=== PATIENT | female | born 1955 | race African-American/Black ===

== ENCOUNTER 2023-07-17 09:45 | Day surgery (SDC) | payer BC ==
[~2023-07-17] VITALS: Ht 160 cm; Wt 54.3 kg
[2023-07-17] VITALS (10 sets, daily range): BP systolic 131–162; BP diastolic 75–97; PULSE 56–71; RESP 14–16; TEMP 97.7; O2SAT 98–100
[2023-07-17] MEDS ORDERED: LATA2.5D14 EACHEYE (09:54)
[2023-07-17] MEDS ORDERED: AMLO2.5T5 PO (09:54)
[2023-07-17] MEDS ORDERED: BRIM5DRO6 EACHEYE (09:54)
[2023-07-17 12:13] LABS: GLUCOSE,CSF 58 MG/DL (40-75); TOTAL PROTEIN,CSF 46 MG/DL (30-60)
[2023-07-17 12:27] LABS: APPEARANCE,CSF CLEAR; CSF RBC 2 /CU MM (0); CSF SUPERNATANT COLOR COLORLESS; CSF VOLUME 11 ML; LYMPHOCYTES,CSF 73 % (40-80); MONOCYTES,CSF 27 % (15-45); TUBE# COUNTED 3
[2023-07-17 12:28] LABS: CSF WBC CT 10 /CU MM (0-5)
[2023-07-18 13:49] LABS: IMMUNOGLOBULIN G, QN, SERUM 1046 mg/dL (586-1602)
[2023-07-19 21:53] LABS: CRYPTOCOCCUS AG TITER, CSF Not Indicated (.); CRYPTOCOCCUS ANTIGEN, CSF Negative (Negative)
== END 2023-07-17 13:00 | disposition home or self-care (01) ==
LOC: SSTAY O 09:45
PROVIDERS: ATTEND Psychiatry & Neurology Neurology
DX: G36.0 Neuromyelitis optica [Devic] (principal); I10 Essential (primary) hypertension; H40.9 Unspecified glaucoma; Z90.710 Acquired absence of both cervix and uterus; Z79.899 Other long term (current) drug therapy; Z80.1 Family history of malignant neoplasm of trachea, bronchus and lung; Z82.49 Family history of ischemic heart disease and other diseases of the circulatory system
CPT/HCPCS: 36415; 62328; 82040; 82042; 82164; 82784; 82945; 83873; 83916; 84157; 86592; 86617; 87015; 87070; 87102; 87899; 89051

== ENCOUNTER 2024-04-04 06:23 | Day surgery (SDC) | payer BC ==
[~2024-04-04] VITALS: Ht 157.5 cm; Wt 52.9 kg
[2024-04-04] VITALS (9 sets, daily range): BP systolic 118–169; BP diastolic 68–94; PULSE 55–74; RESP 11–15; TEMP 98.1; O2SAT 95–99
[~2024-04-04 06:23] MED LIST: AMLO2.5T5 PO; BRIM5DRO6 EACHEYE; LATA2.5D14 EACHEYE
[2024-04-04 11:20] LABS: APPEARANCE,CSF CLEAR; CSF SUPERNATANT COLOR COLORLESS; CSF VOLUME 12.8 ML; CSF WBC CT 2 /CU MM (0-5); TUBE# COUNTED 4
[2024-04-04 11:21] LABS: CSF RBC 8 /CU MM (0)
[2024-04-04 11:22] LABS: GLUCOSE,CSF 49 MG/DL (40-75); TOTAL PROTEIN,CSF 50 MG/DL (30-60)
[2024-04-05 08:14] LABS: IMMUNOGLOBULIN G, QN, SERUM 1034 mg/dL (586-1602)
[2024-04-09 13:24] LABS: ANGIOTENSIN CONVERT ENZ, CSF <1.5 U/L (0.0-3.1)
[2024-04-10 11:24] LABS: MYELIN BASIC PROTEIN, CSF 2.6 ng/mL (0.0-4.7)
[2024-04-10 13:14] LABS: IMMUNOGLOBULIN G, QN CSF 1.7 mg/dL (0.0-6.7)
[2024-04-11 15:16] LABS: CRYPTOCOCCUS AG TITER, CSF Not Indicated (.); CRYPTOCOCCUS ANTIGEN, CSF Negative (Negative)
[2024-04-13 13:33] LABS: CSF JC VIRUS DNA (PCR) Negative (Negative)
== END 2024-04-04 15:10 | disposition home or self-care (01) ==
LOC: RAD 06:23 → SSTAY O 15:10
PROVIDERS: ATTEND Psychiatry & Neurology Neurology
DX: G36.0 Neuromyelitis optica [Devic] (principal)
CPT/HCPCS: 36415; 62328; 82040; 82042; 82164; 82784; 82945; 83873; 83916; 84157; 86592; 86617; 87015; 87070; 87102; 87483; 87798; 87899; 88108; 89051